=== PATIENT | female | born 1990 | race Asian ===

== ENCOUNTER 2023-11-08 23:45 | Emergency (ER) | payer BC ==
[~2023-11-08] VITALS: Ht 165.1 cm; Wt 82.7 kg
[2023-11-08 23:57] VITALS: TEMP 97.8
[2023-11-09] MEDS ORDERED: NS 1,000 ML IV ONE ×2 (00:30→03:00)
[2023-11-09] MEDS ORDERED: HYDROmorphone 0.5 MG/0.5 ML SYRINGE IV ONE ×2 (00:30→01:30)
[2023-11-09] MEDS ORDERED: Ondansetron 4 MG/2 ML VIAL IV ONE (00:30)
[2023-11-09 00:55] LABS: BASO # 0.1 K/mm3 (0.0-0.2); BASO % 0.4 % (0.0-2.0); EOS % 0.3 % (0.0-4.0); GRAN # 9.6 K/mm3 (1.4-6.5); GRAN % 82.3 % (42.2-75.2); HEMOGLOBIN 12.6 g/dl (12.5-16.0); LYMPH # 1.5 K/mm3 (1.2-3.4); LYMPH % 12.7 % (20.0-51.0); MEAN CELL VOLUME 93 fl (80.0-100.0); MEAN CORPUSCULAR HEMOGLOBIN 32 pg (27-31); MEAN CORPUSCULAR HGB CONC 34 g/dl (33.0-37.0); MEAN PLATELET VOLUME 10.1 fl (7.4-10.4); MONO # 0.4 K/mm3 (0.1-0.6); MONO % 3.7 % (1.7-9.3); PLATELET COUNT 355 K/mm3 (130-400); RED BLOOD COUNT 3.93 M/mm3 (4.10-5.30); REDCELL DISTRIBUTION WIDTH-CV 11.9 % (11.5-14.5)
[2023-11-09 01:01] LABS: HEMATOCRIT 36.6 % (37.0-47.0)
[2023-11-09 01:08] LABS: ALBUMIN 3.9 g/dL (3.5-5.0); BILIRUBIN,TOTAL 0.5 mg/dL (0.2-1.2); C-REACTIVE PROTEIN 0.24 mg/dL (0.00-0.50); CALCIUM 9.5 mg/dL (8.4-10.2); CREATININE, serum 0.86 mg/dL (0.57-1.11); POTASSIUM 3.9 mEq/L (3.5-4.5); TOTAL PROTEIN 7.7 g/dl (6.2-8.1)
[2023-11-09] MEDS ORDERED: Ketorolac 30 MG/ML VIAL IV ONE (01:30)
[2023-11-09 02:57] VITALS: BP 97/67
[2023-11-09 03:00] VITALS: PULSE 109
== END 2023-11-09 02:57 | disposition short-term general hospital (02) ==
LOC: COL.ER 23:45
PROVIDERS: Nurse Practitioner
DX: O26.891 Other specified pregnancy related conditions, first trimester (principal); R10.2 Pelvic and perineal pain
CPT/HCPCS: J1170; J1885; J2405; J7030